=== PATIENT | female | born 1980 | race Caucasian/White ===

== ENCOUNTER 2017-07-23 16:34 | Emergency (ER) | payer SELFPAY ==
[2017-07-23] MEDS ORDERED: HYDROcodone/Acetaminophen 10/325 mg Tablet ONE (17:02)
--- NOTE | 2017-07-23 17:53 | RAD ---
RIGHT HIP TWO VIEWS: 07/23/17 HISTORY: Hip injury. There is some lucency related to the acetabulum which I cannot definitely explain as over lying soft tissue shadow. I would suggest consideration for CT to exclude an acetabular injury. IMPRESSION: Lucency involving the acetabulum of uncertain significance. I cannot exclude the possibility this rep resent an acetabular fracture. I would suggest CT for further evaluation. POS: [facility]
--- NOTE | 2017-07-23 17:54 | RAD ---
LUMBAR SPINE TWO VIEWS: 07/23/17 HISTORY: Fall. Vertebral bodies are normal in height. Disc spaces are well preserved. Pedicles are intact. IMPRESSION: Unremarkable lumbar spine series. POS: [place]
--- NOTE | 2017-07-23 18:57 | CT ---
CT PELVIS NONCONTRAST: 07/23/17 INDICATION: Injury. Pain. FINDINGS: There is no evidence of a displaced right hip fracture to account for radiographic lucency. This like ly relates to superimposition of the acetabular cup on the preceding radiograph. No evidence of abnor mal diastasis of symphysis pubis or either sacroiliac joint. No significant arthropathy. No evidence of acute abnormality of the pelvis. Physiologic appearing changes of the uterus and adnexa noted. IMPRESSION: No evidence of an acute pelvic fracture. POS: [facility]
== END 2017-07-23 19:18 | disposition home or self-care (01) ==
LOC: MADERS 16:34
DX: S70.01XA Contusion of right hip, initial encounter (principal); J45.909 Unspecified asthma, uncomplicated; Z87.891 Personal history of nicotine dependence; W18.30XA Fall on same level, unspecified, initial encounter
CPT/HCPCS: 72100; 72192

== ENCOUNTER 2017-09-18 08:00 | Emergency (ER) | payer SELFPAY | END 2017-09-18 08:30 | disposition home or self-care (01) | LOC: MADERS 08:00 | DX: J01.90 Acute sinusitis, unspecified (principal); J20.9 Acute bronchitis, unspecified; J45.909 Unspecified asthma, uncomplicated; F17.220 Nicotine dependence, chewing tobacco, uncomplicated | CPT/HCPCS: 99283 ==